=== PATIENT | male | born 1970 ===

== ENCOUNTER 2020-05-28 13:13 | Emergency (ER) | payer BC, OTHER ==
[~2020-05-28] VITALS: Ht 182.9 cm; Wt 85.0 kg
--- NOTE | 2020-05-28 13:20 | NUR ---
TASK RN: PT JEF ANDERSON FROM [facility] CHEST PAIN AND HYPERTENSION LAST NIGHT 200'S/90. 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 DENIES CARDIAC/PULM HX. EKG AT SHOWS 1MM ELEVATION IN LEADS VS-V3, NO STEMI CALLED UPON ARRIVAL. BP/SPO2/ECG MONITORING IN PLACE. EKG COMPLETED UPON ARRIVAL. REPORT TO PRIMARY RNCAREN.
[2020-05-28] MEDS ORDERED: SODIUM CHLORIDE FLUSH 10ML SYR IVF ONE (14:00)
[2020-05-28 14:45] LABS: BASOPHILS % (AUTO) 1 % (0-1); EOSINOPHILS % (AUTO) 1 % (1-7); LYMPHOCYTES % (AUTO) 25 % (22-44); MEAN CORPUSCULAR HEMOGLOBIN 32.9 pg (27.5-34.5); MEAN CORPUSCULAR HGB CONC 34.2 g/dL (33.2-36.2); MEAN PLATELET VOLUME 7.9 fL (7.4-10.4); MONOCYTES % (AUTO) 8 % (2-9); NEUTROPHILS % (AUTO) 65 % (42-75); PLATELET COUNT 241 x10^3/uL (130-400); RED CELL DISTRIBUTION WIDTH 13.6 % (9.4-14.8)
[2020-05-28 14:47] LABS: MD NO
[2020-05-28 14:53] LABS: ALBUMIN 4.4 g/dL (3.4-5.0); ANION GAP 7 mmol/L (5-15); CALCIUM 9.3 mg/dL (8.5-10.1); CHLORIDE 104 mmol/L (98-107)
--- NOTE | 2020-05-28 14:58 | NUR ---
PT RESTING IN BED WATCHING TV. VSS. SUPPORTIVE AT BEDSIDE.
[2020-05-28 14:59] LABS: ALANINE AMINOTRANSFERASE 66 U/L (12-78); ALKALINE PHOSPHATASE 56 U/L (45-117); BILIRUBIN,TOTAL 0.5 mg/dL (0.2-1.0); CREATININE 1.01 mg/dL (0.7-1.3); TROPONIN I < 0.015 ng/mL (0.000-0.045)
[2020-05-28 16:06] VITALS: BP 152/79
--- NOTE | 2020-05-28 16:20 | NUR ---
pt given water and meal tray has been ordered
[2020-05-28] MEDS ORDERED: NITROGLYCERIN OINT 2%, 1GM TP ONE (16:30)
--- NOTE | 2020-05-28 16:43 | NUR ---
TASK RN: RN TO BEDSIDE TO ANSWER CALL LIGHT. PT STATES "WITH EVERYTHING GOING ON IN THE HOSPITAL, I WOULD RATHER NOT BE ADMITTED. I CAN JUST DO THE STRESS TEST OUTPATIENT". ERP AWARE. POC IS DC WITH REFERAL TO CARDIOLOGY AND STRICT INSTRUCTION TO RETURN TO ED WITH NEW OR WOSENING S/S. PT AND UPDATED AND DEMONSTRATE UNDERSTANDING.
== END 2020-05-28 16:55 | disposition left against medical advice (07) ==
LOC: ED 16:40
DX: R07.89 Other chest pain (principal); M54.5 Low back pain; F17.210 Nicotine dependence, cigarettes, uncomplicated
CPT/HCPCS: 36415; 71045; 80053; 83690; 84484; 85025; 85379; 93005; 99285